=== PATIENT | female | born 1960 | race Caucasian/White ===

== ENCOUNTER 2017-09-14 22:03 | Observation (INO) | payer OTHER ==
[~2017-09-14] VITALS: Ht 165.1 cm; Wt 101.4 kg
[2017-09-14 23:21] LABS: HEMATOCRIT 39.3 % (36.0-46.0); MCH 31.8 PG (29.0-34.0); MCHC 34.4 G/DL (30.0-36.0); MCV 92.7 FL (83-99); MEAN PLAT.VOLUME 10.8 uM^3 (9.5-12.4); PLATELET COUNT 176 K/uL (156-360); RBC DIS.WIDTH-SD 43.8 % (39-53); RED BLOOD COUNT 4.24 M/uL (3.80-5.20); WHITE BLOOD COUNT 6.6 K/uL (4.1-10.2)
[2017-09-14 23:35] LABS: CHLORIDE 107 mEq/L (99-109); POTASSIUM 3.6 mEq/L (3.7-5.4); SODIUM 140 mEq/L (136-147)
[2017-09-14 23:36] LABS: GLUCOSE 343 mg/dL (70-99)
[2017-09-14 23:37] LABS: ANION GAP 9 MEQ/L (2-14)
[2017-09-14 23:39] LABS: GFR ESTIMATE (CALCULATED) > 59 mL/min/
[2017-09-14 23:40] LABS: UREA NITROGEN (BUN) 17 mg/dL (9-23)
[2017-09-14 23:43] LABS: TROP-I INTERPRETATION NEGATIVE; TROPONIN-I < 0.01 ng/mL (0.0-0.30)
[2017-09-15] MEDS ORDERED: ADVIL,NUPRIN,M200 MG PO (01:14)
[2017-09-15 06:06] LABS: CHLORIDE 108 mEq/L (99-109); POTASSIUM 4.1 mEq/L (3.7-5.4); SODIUM 136 mEq/L (136-147)
[2017-09-15 06:07] LABS: MAGNESIUM 1.6 mg/dL (1.3-2.7)
[2017-09-15 06:08] LABS: GLUCOSE 300 mg/dL (70-99)
[2017-09-15 06:10] LABS: ANION GAP 6 MEQ/L (2-14)
[2017-09-15 06:12] LABS: GFR ESTIMATE (CALCULATED) > 59 mL/min/
[2017-09-15 06:13] LABS: UREA NITROGEN (BUN) 16 mg/dL (9-23)
[2017-09-15 06:15] LABS: TROP-I INTERPRETATION NEGATIVE; TROPONIN-I < 0.01 ng/mL (0.0-0.30)
[2017-09-15 07:00] LABS: Estimated Average Glucose 298 mg/dL (70-123)
[2017-09-15 07:40] VITALS: BP 146/76
[2017-09-15 11:22] VITALS: BP 168/89
[2017-09-15 12:12] LABS: TROP-I INTERPRETATION NEGATIVE; TROPONIN-I < 0.01 ng/mL (0.0-0.30)
[2017-09-15] MEDS ORDERED: LISINOPRIL10 MG PO (12:53)
[2017-09-15] MEDS ORDERED: GLUCOPHAGE850 MG PO (12:53)
== END 2017-09-15 14:57 | disposition home or self-care (01) ==
LOC: EME 22:03 → EDOF 09-15 02:31 → ENRESERV 09-15 02:32 → 5WEST 09-15 07:25 → ENPENDDIS 09-15 13:17 → 5WEST 09-15 14:57
PROVIDERS: Physician Assistant
DX: R07.9 Chest pain, unspecified (principal); E87.6 Hypokalemia; R73.03 Prediabetes; M19.90 Unspecified osteoarthritis, unspecified site; M48.00 Spinal stenosis, site unspecified; R00.2 Palpitations; Z87.891 Personal history of nicotine dependence; Z79.82 Long term (current) use of aspirin
CPT/HCPCS: 71020; 80048; 83036; 83735; 84484; 85027; 93005; 99281; 99285; G0378; J1650